=== PATIENT | female | born 1985 | race Two or more races ===

== ENCOUNTER 2017-08-24 15:22 | Emergency (ER) | payer SELFPAY ==
[2017-08-24] MEDS ORDERED: NS 1,000 ML IV ONE (15:44)
[2017-08-24] MEDS ORDERED: ONDANSETRON 4 MG/2 ML VIAL IVP ONE (15:44)
[2017-08-24 16:01] LABS: PLATELET COUNT 456 10^3/uL (150-400)
--- NOTE | 2017-08-24 16:26 | EDPHY ---
H & P Time Seen by Provider: 08/24/17 15:32 HPI/ROS: CHIEF COMPLAINT: Diarrhea, chills, out of medication HISTORY OF PRESENT ILLNESS: This is a 32-year-old female with a complicated past medical history. Patient is primarily [place]-speaking, just arrived here from [place] 2 weeks ago, seek an additional consultation regarding chronic abdominal issues. Patient has had gastroparesis and currently has a J-tube in place for the last year. She reports that she has had multiple laparoscopic surgeries as well as a period of time when she was on TPN. She currently receives majority of her nutrition through her J-tube. She can take some fluids by mouth. She uses Zofran for nausea as well as oxycodone 40 mg for pain. She is out of these medications. She ran out 3 days ago. She presents reporting diarrhea for the last 3 days, some crampy abdominal discomfort when she tries to use her tube feedings, and chills. No fever. No blood in the diarrhea. Also reports a runny nose. No cough, shortness of breath, chest pain, or vomiting. She does have some nausea. She tells me she has an appointment tomorrow to discuss obtaining medicaid insurance and has an appointment with a sales market leader in the [place] area in 2 weeks. REVIEW OF SYSTEMS: Aside from elements discussed in the HPI, a comprehensive 10-point review of systems was reviewed and is negative. PAST MEDICAL HISTORY: Multiple abdominal surgeries, gastroparesis, J tube feedings, status post cholecystectomy. SOCIAL HISTORY: Newly arrived from [place]. Here with her cousin. Nonsmoker. No alcohol use. VITAL SIGNS Reviewed by me. GENERAL: Well-developed, well-nourished, no respiratory distress. Reports minimal abdominal discomfort currently but is nauseous. Somewhat bill[place] in color. HEENT: Atraumatic. Eyes: No icterus, no injection. Mouth: moist mucous membranes. No erythema or lesions. Neck: supple with no adenopathy. LUNGS: Clear to auscultation bilaterally, no wheezes, rhonchi or rales. CARDIAC: Regular rate and rhythm, no rubs, murmurs or gallops. ABDOMEN: Soft, J tube is in place. No distension. Normal bowel sounds. No tenderness to palpation. BACK: No CVA tenderness. EXTREMITIES: No trauma. No edema. Range of motion is normal throughout. NEURO: Alert and oriented, grossly nonfocal. SKIN: Warm and dry, no rash. PSYCHIATRIC: Normal mentation, no agitation. Smoking Status: Never smoked Constitutional: Initial Vital Signs Temperature (C) 37.0 C 08/24/17 15:28 Heart Rate 86 08/24/17 15:28 Respiratory Rate 18 08/24/17 15:28 Blood Pressure 122/81 H 08/24/17 15:28 O2 Sat (%) 97 08/24/17 15:28 O2 Delivery Mode Room Air Allergies/Adverse Reactions: No Known Allergies Allergy (Unverified 08/24/17 15:28) Home Medications: Medication Instructions Recorded Ondansetron 08/24/17 Ondansetron HCl [Zofran] 4 mg PO Q4-6PRN PRN #20 tablet 08/24/17 Oxycodone HCl 08/24/17 oxyCODONE IR [Oxycodone Ir (*)] 15 mg PO BID #20 tab 08/24/17 Medical Decision Making ED Course/Re-evaluation: History obtained via chocolate molder. IV placed. Labs ordered. Patient received a L normal saline. She received Zofran for nausea. Unable to provide a stool sample in the emergency department. Labs largely unremarkable. Discussed with the patient the importance of: 1. Establishing Medicaid insurance. 2. Establishing care at [facility]. Ongoing medications for Zofran and narcotics will need to be provided by [facility]. 3. Obtaining Gastroenterology follow-up either in [place] or here in the [facility]. [facility] can help assist. 4. Given a prescription of Zofran as well as oxycodone. Differential Diagnosis: Differential diagnoses for the patient's symptom complex was considered including but not limited to gastroenteritis, dehydration, electrolyte abnormalities, opiate dependency with withdrawal, bowel obstruction. - Data Points Laboratory Results: Laboratory Results 08/24/17 15:55 08/24/17 15:55 08/24/17 08/24/17 15:55 15:55 WBC 6.25 10^3/uL 10^3/uL (3.80-9.50) RBC 4.86 10^6/uL 10^6/uL (4.18-5.33) Hgb 10.4 g/dL L g/dL (12.6-16.3) Hct 34.5 % L % (38.0-47.0) MCV 71.0 fL L fL (81.5-99.8) MCH 21.4 pg L pg (27.9-34.1) MCHC 30.1 g/dL L g/dL (32.4-36.7) RDW 16.9 % H % (11.5-15.2) Plt Count 456 10^3/uL H 10^3/uL (150-400) MPV 8.2 fL L fL (8.7-11.7) Neut % (Auto) 65.1 % % (39.3-74.2) Lymph % (Auto) 27.5 % % (15.0-45.0) Thomas % (Auto) 4.2 % L % (4.5-13.0) Eos % (Auto) 2.2 % % (0.6-7.6) Baso % (Auto) 0.8 % % (0.3-1.7) Nucleat RBC Rel Count 0.0 % % (0.0-0.2) Absolute Neuts (auto) 4.07 10^3/uL 10^3/uL (1.70-6.50) Absolute Lymphs (auto) 1.72 10^3/uL 10^3/uL (1.00-3.00) Absolute Monos (auto) 0.26 10^3/uL L 10^3/uL (0.30-0.80) Absolute Eos (auto) 0.14 10^3/uL 10^3/uL (0.03-0.40) Absolute Basos (auto) 0.05 10^3/uL 10^3/uL (0.02-0.10) Absolute Nucleated RBC 0.00 10^3/uL 10^3/uL (0-0.01) Immature Gran % 0.2 % % (0.0-1.1) Immature Gran # 0.01 10^3/uL 10^3/uL (0.00-0.10) Sodium 142 mEq/L mEq/L (135-145) Potassium 3.8 mEq/L mEq/L (3.5-5.2) Chloride 101 mEq/L mEq/L (97-110) Carbon Dioxide 29 mEq/l mEq/l (22-31) Anion Gap 12 mEq/L mEq/L (8-16) BUN 12 mg/dL mg/dL (7-23) Creatinine 0.7 mg/dL mg/dL (0.6-1.0) Estimated GFR > 60 Glucose 109 mg/dL H mg/dL (70-100) Calcium 9.1 mg/dL mg/dL (8.5-10.4) Total Bilirubin 0.4 mg/dL mg/dL (0.1-1.4) Conjugated Bilirubin 0.3 mg/dL mg/dL (0.0-0.5) Unconjugated Bilirubin 0.1 mg/dL mg/dL (0.0-1.1) AST 19 IU/L IU/L (14-46) ALT 28 IU/L IU/L (9-52) Alkaline Phosphatase 109 IU/L IU/L (38-126) Total Protein 7.7 g/dL g/dL (6.3-8.2) Albumin 4.1 g/dL g/dL (3.5-5.0) Lipase 121 IU/L IU/L (23-300) Medications Given: Discontinued Medications Sodium Chloride (Ns) 1,000 mls @ 0 mls/hr IV EDNOW ONE; Wide Open PRN Reason: Protocol Stop: 08/24/17 15:45 Last Admin: 08/24/17 16:19 Dose: 1,000 mls Ondansetron HCl (Zofran) 4 mg IVP EDNOW ONE Stop: 08/24/17 15:45 Last Admin: 08/24/17 16:20 Dose: 4 mg Ondansetron HCl (Zofran Odt 4 Mg Prepack#2) 1 btl TAKEHOME EDNOW ONE Stop: 08/24/17 16:53 Last Admin: 08/24/17 17:10 Dose: 1 btl Oxycodone/Acetaminophen (Percocet 5/325mg Prepack#4) 1 btl TAKEHOME EDNOW ONE Stop: 08/24/17 16:53 Last Admin: 08/24/17 17:11 Dose: 1 btl Departure - Departure Disposition: Home, Routine, Self-Care Clinical Impression: Abdominal pain Qualifiers: Abdominal location: generalized Qualified Code(s): R10.84 - Generalized abdominal pain Diarrhea Qualifiers: Diarrhea type: unspecified type Qualified Code(s): R19.7 - Diarrhea, unspecified Opiate dependence Qualifiers: Substance use status: in withdrawal Qualified Code(s): F11.23 - Opioid dependence with withdrawal Condition: Good Instructions: Oxycodone/Acetaminophen (By mouth), Ondansetron (By mouth), Acute Diarrhea (ED), Opioid Withdrawal (ED) Additional Instructions: 1. Please follow up tomorrow for your medicaid review. 2. Please establish care at [facility]. 3. [facility] can help assist with referral to Gastroenterology. 4. [facility] or another primary care physician will need to provide ongoing opiate medications. This cannot be provided from the emergency department. 5. If you developed blood in the diarrhea, fevers, increasing abdominal pain, vomiting, or other concerns, please return to the emergency department or seek care urgently. 1. Por favor veronica un seguimiento manana para repasar rocha historial medico. 2. Por favor establezca cuidado en la [facility]. 3.La [facility] le puede asisitir con dulce referencia con el Gastroenterologo. 4. La [facility] u otro proveedor de cuidado primario necesitara proveer medicamentos opioides en curso. [place] no puede ser provisto en el departamento de emergencias. 5. Si usted desarolla sabino en la diarrea, fiebre, aumento del dolor abdominal , vomito, o cualquier otra preocupacion, por favor regrese al departamento de emergencias o busque cuidado urgente. Referrals: NONE *PRIMARY CARE P,. [Primary Care Provider] - As per Instructions [facility],. [Clinic] - As per Instructions (Please call tomorrow and discuss your situation. Please make an appointment as soon as possible with the intake personnel to establish care.) Prescriptions: Ondansetron HCl [Zofran] 4 mg PO Q4-6PRN PRN #20 tablet PRN Reason: nausea oxyCODONE IR [Oxycodone Ir (*)] 15 mg PO BID #20 tab Print Language: Trinid[place]
[2017-08-24] MEDS ORDERED: OXYCODONE/APAP 5/325MG PREPACK#4 BTL TAKEHOME ONE (16:52)
[2017-08-24] MEDS ORDERED: ONDANSETRON 4MG PREPACK#2 BTL TAKEHOME ONE (16:52)
[2017-08-24 17:12] VITALS: BP 111/65
== END 2017-08-24 17:20 | disposition home or self-care (01) ==
LOC: CED 15:22
DX: R19.7 Diarrhea, unspecified (principal); R10.84 Generalized abdominal pain; F11.23 Opioid dependence with withdrawal; E86.9 Volume depletion, unspecified; Z90.49 Acquired absence of other specified parts of digestive tract
CPT/HCPCS: 80048-PO; 80076-PO; 83690-PO; 85025-PO; 96374; J2405